=== PATIENT | male | born 1990 | race American Indian/Alaskan Native ===

== ENCOUNTER 2018-04-20 15:28 | Emergency (ER) | payer SELFPAY ==
[2018-04-20 16:29] LABS: BUN/Creatinine Ratio 11; Blood Urea Nitrogen 9 mg/dL (9-20); Calcium 9.5 mg/dL (8.4-10.2); Hemolysis Index 32
[2018-04-20 16:32] LABS: Mean Corpuscular HGB Conc 36 % (32-34); Mean Corpuscular Hemoglobin 34 pg (28-32); Mean Corpuscular Volume 94 fl (84-94); Platelet Count 210 K/mm3 (140-440); Red Blood Count 4.98 M/mm3 (3.65-5.03); Red Cell Distribution Width 13.7 % (13.2-15.2)
[2018-04-20 16:38] LABS: Hematocrit 46.7 % (35.5-45.6); Hemoglobin 16.7 gm/dl (11.8-15.2)
--- NOTE | 2018-04-20 21:17 | Emergency Department Report ---
HPI - General Chief Complaint: Neuro Symptoms/Deficit Time Seen by Provider: 04/20/18 20:53 - HPI HPI: 27-year-old male presents to the emergency department with complaint of having some difficulty talking and some right upper extremity weakness that started yesterday after the patient took an Aleve for a toothache he has been having. Patient denies any past medical history. He is a tobacco smoker. He did not come in to be seen at the time of these symptoms starting as he thought that they would go away on their own but after talking to family and friends he was told to come in to be seen today. Currently he denies any difficulty with speech but still feels like his right arm is slightly weak. He has a right-sided headache but denies any vision change. He denies any numbness , chest pain, shortness of breath. He has taken Aleve and NSAIDs in the past without any difficulty. He does not have a primary care physician. ED Past Medical Hx - Past Medical History Previous Medical History?: No - Surgical History Past Surgical History?: No - Social History Smoking Status: Heavy Tobacco Smoker Substance Use Type: Alcohol, Marijuana ED Review of Systems ROS: Stated complaint: DIZZY/WEAKNESS/NUMBNESS Other details as noted in HPI Comment: All other systems reviewed and negative Constitutional: denies: chills, fever Eyes: denies: eye pain, eye discharge, vision change ENT: denies: ear pain, throat pain Respiratory: denies: cough, shortness of breath, wheezing Cardiovascular: denies: chest pain, palpitations Gastrointestinal: denies: abdominal pain, nausea, diarrhea Genitourinary: denies: urgency, dysuria Musculoskeletal: denies: back pain, joint swelling, arthralgia Skin: denies: rash, lesions Neurological: headache, weakness Physical Exam - Physical Exam Vital Signs: Vital Signs 04/20/18 15:51 Temperature 99 F Pulse Rate 101 H Respiratory 18 Rate Blood Pressure 153/95 O2 Sat by Pulse 98 Oximetry Physical Exam: GENERAL: The patient is well-developed well-nourished. HENT: Normocephalic. Atraumatic. Patient has moist mucous membranes. EYES: Extraocular motions are intact. Pupils equal reactive to light bilaterally. NECK: Supple. Trachea is midline. CHEST/LUNGS: Clear to auscultation. There is no respiratory distress noted. HEART/CARDIOVASCULAR: Regular. There is no tachycardia. There is no murmur. ABDOMEN: Abdomen is soft, nontender. Patient has normal bowel sounds. There is no abdominal distention. SKIN: Skin is warm and dry. NEURO: The patient is awake, alert, and oriented. The patient is cooperative. The patient has no focal neurologic deficits. The patient has normal speech. Cranial nerves II through XII grossly intact. No pronator drift. No dysmetria. No facial asymmetry. MUSCULOSKELETAL: There is no tenderness or deformity. There is no limitation range of motion. There is no evidence of acute injury. Muscle strength 5 out of 5 upper and lower extremities bilaterally. ED Course Vital Signs 04/20/18 15:51 Temperature 99 F Pulse Rate 101 H Respiratory 18 Rate Blood Pressure 153/95 O2 Sat by Pulse 98 Oximetry - Reevaluation(s) Reevaluation #1: 04/20/18 21:13 NIH Stroke Scale/Score (NIHSS) RESULT SUMMARY: 0 points NIH Stroke Scale INPUTS: 1A: Level of consciousness > 0 = Alert; keenly responsive 1B: Ask month and age > 0 = Both questions right 1C: 'Blink eyes' & 'squeeze hands' > 0 = Performs both tasks 2: Horizontal extraocular movements > 0 = Normal 3: Visual carty > 0 = No visual loss 4: Facial palsy > 0 = Normal symmetry 5A: Left arm motor drift > 0 = No drift for 10 seconds 5B: Right arm motor drift > 0 = No drift for 10 seconds 6A: Left leg motor drift > 0 = No drift for 5 seconds 6B: Right leg motor drift > 0 = No drift for 5 seconds 7: Limb Ataxia > 0 = No ataxia 8: Sensation > 0 = Normal; no sensory loss 9: Language/aphasia > 0 = Normal; no aphasia 10: Dysarthria > 0 = Normal 11: Extinction/inattention > 0 = No abnormality ED Medical Decision Making - Lab Data Result diagrams: 04/20/18 16:00 04/20/18 16:00 - EKG Data -: EKG Interpreted by Me EKG shows normal: sinus rhythm, axis, intervals, QRS complexes, ST-T waves Rate: normal - EKG Data When compared to previous EKG there are: previous EKG unavailable Interpretation: normal EKG - Medical Decision Making Patient presents to the emergency department with complaint of having some dysarthria and right arm weakness after taking some Aleve yesterday. He admits that the dysarthria has resolved but still says he feels like his right arm is weak. On the NIH stroke scale patient is a 0. I am unable to appreciate any extremity weakness or any other deficits. He has no focal, motor or sensory deficits and his cranial nerves are intact. He does have a complaint of a mild headache, which is on the right side of the head. A CT scan was discussed with the patient did not want to have this done at this time. He had a normal blood count, metabolic panel and has normal thyroid function. His vital signs are stable throughout his ED course. He has been reevaluated multiple times over multiple hours and has remained stable without any signs of any weakness or strokelike symptoms. For all these reasons the patient appears safe for discharge home at this time. He has been given multiple referrals for primary care physicians for outpatient follow-up. We discussed smoking cessation. He will return to the ER immediately with any return of his symptoms with any acute distress. - Differential Diagnosis TIA, dysrhythmia, hypoglycemia, hypothyroidism, electrolyte abnormalities Critical Care Time: No Critical care attestation.: If time is entered above; I have spent that time in minutes in the direct care of this critically ill patient, excluding procedure time. ED Disposition Clinical Impression: Right arm weakness, Tobacco use Headache Qualifiers: Headache type: unspecified Headache chronicity pattern: unspecified pattern Intractability: not intractable Qualified Code(s): R51 - Headache Disposition: DC-01 TO HOME OR SELFCARE Is pt being admited?: No Condition: Stable Instructions: How to Stop Smoking (ED), Acute Headache (ED), Weakness (ED) Additional Instructions: Please follow up with a primary care physician in the next few days. Return to the emergency department with any worsening of your symptoms, or with any acute distress. Please try and quit smoking. Referrals: ALAN VALADEZ MD [Primary Care Provider] - 3-5 Days MIKALA JENKINS MD [Staff Physician] - 3-5 Days [facility] [Outside] - 3-5 Days Time of Disposition: 22:00
[2018-04-20] MEDS ORDERED: TYLENOL PO ONE (21:26)
[2018-04-20 22:22] VITALS: BP 132/79
== END 2018-04-20 22:23 | disposition home or self-care (01) ==
LOC: ED 15:28
DX: R51 Headache (principal); R53.1 Weakness; F17.200 Nicotine dependence, unspecified, uncomplicated; F12.10 Cannabis abuse, uncomplicated
CPT/HCPCS: 36415; 80048; 84443; 85027; 93005; 93010; 99283